=== PATIENT | female | born 1980 | race Caucasian/White ===

== ENCOUNTER 2017-05-08 20:04 | Emergency (ER) | payer OTHER ==
[~2017-05-08] VITALS: Ht 167.6 cm; Wt 174.4 kg
[~2017-05-08 20:04] MED LIST: ALEVE220 MG PO; BRINTELLIX10 MG PO; BRINTELLIX20 MG PO; BUSPAR15 MG PO; Colace PO; FLOVENT 11120 INHALA IH; Feosol PO; KEFLEX500 MG PO; KLONOPIN1 MG PO; LORAZEPAM1 MG PO; LOVENOX40 MG/0.4 SC; MELOXICAM15 MG PO; MIRTAZAPINE15 MG PO; MUCINEX600 MG PO; Motrin PO; PERCOCET 5/31 TABLET PO; PRENATAL TABLE1 EAC3 PO; PROAIR HFA8.5 GM IH; Percocet 5/325,Endoc PO; ROBITUSSIN NIG118 ML PO; SYMBICORT60 INHALA1 IH; TESSALON PERLE100 MG PO; TRILEPTAL300 MG PO; ULTRAM50 MG PO; ZITHROMAX Z-PA250 MG PO
[2017-05-08 20:09] VITALS: BP 168/81
[2017-05-08] MEDS ORDERED: NORCO 5/3251 TABLET PO (22:56)
== END 2017-05-08 23:04 | disposition home or self-care (01) ==
LOC: EME 20:04
DX: G89.18 Other acute postprocedural pain (principal); K08.409 Partial loss of teeth, unspecified cause, unspecified class; Z88.0 Allergy status to penicillin; Z88.1 Allergy status to other antibiotic agents
CPT/HCPCS: 99281; 99283